=== PATIENT | female | born 1950 | race Caucasian/White ===

== ENCOUNTER 2016-11-07 13:59 | Emergency (ER) | payer OTHER, MEDICAID ==
--- NOTE | 2016-11-07 15:09 | DX ---
Right Ankle, Three Views History: Pain, post trauma x one week. Findings: No fracture, effusion, or dislocation is identified. Mineralization is normal. No arthritis is detected. Impression: No posttraumatic abnormality identified.
--- NOTE | 2016-11-07 15:49 | EDPHY ---
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 Approximately 1 week ago she misstepped twisting it. Since then she has had pain the as intermittent in nature. However, she can still ambulate. She denies other associated signs or symptoms: No open wounds, no paresthesias or abnormal coolness in the foot. No other pain or trauma reported. - Personal History Current Tetanus Diphtheria and Acellular Pertussis (TDAP): Yes - Medical/Surgical History Other PMH: hypothyroid, kiel,tonsilectomy, crum steroma - Social History Smoking Status: Never smoked - Physical Exam Exam: General appearance: Alert, nontoxic Musculoskeletal: There is tenderness about the lateral malleolus. The rest the ankle including over the Achilles is unremarkable. The knee, lower leg and foot are unremarkable. Vascular exam: Normal pulses and capillary refill in the foot Neurologic exam: The patient has normal sensation and motor function distal to the injury. Constitutional: Initial Vital Signs Temperature (C) 36.7 C 11/07/16 14:21 Heart Rate 80 11/07/16 14:21 Respiratory Rate 16 11/07/16 14:21 Blood Pressure 115/76 11/07/16 14:21 O2 Sat (%) 97 11/07/16 14:21 O2 Delivery Mode Room Air Allergies/Adverse Reactions: codeine [Codeine] Allergy (Unknown, Verified 11/07/16 14:20) gluten Allergy (Unknown, Verified 11/07/16 14:20) Sulfa (Sulfonamide Antibiotics) [Sulfa(Sulfonamide Antibiotics)] Allergy ( Unknown, Verified 11/07/16 14:20) venom-honey bee [bee venom (honey bee)] Allergy (Unknown, Verified 11/07/16 14: 20) Home Medications: Medication Instructions Recorded Thyroid [[place] Thyroid 60 MG (RX)] 60 mg PO DAILY10 08/04/12 Medical Decision Making - Diagnostics Imaging: X-ray series of the left ankle is negative for acute findings Procedures: Procedure: Splint placement. An Paulo wrap and Velcro stirrup splint was applied. After application of the splint I returned and re-examined the patient. The splint was adequately immobilizing the joint and distal to the splint the patient's circulation and sensation was intact. ED Course/Re-evaluation: Patient seen under the supervision of my secondary supervising physician Dr. Kulwant Law. Patient presents to the emergency department for right ankle injury. The foot is neurovascularly intact. X-ray negative. Likely a sprain. By history and physical exam no evidence of trauma to other parts of the body. Patient will be discharged home. Home care is discussed. She is referred to Orthopedics for recheck. Return precautions are given. Patient voiced understanding and agreement plan. Differential Diagnosis: Included but not limited to contusion, sprain or strain, fracture Departure - Departure Disposition: Home, Routine, Self-Care Clinical Impression: Ankle sprain Qualifiers: Encounter type: initial encounter Involved ligament of ankle: unspecified ligament Laterality: right Qualifier Code: (S93.401A) Sprain of unspecified ligament of right ankle, initial encounter Condition: Good Instructions: Ankle Sprain (ED) Additional Instructions: Follow-up with orthopedics for recheck next week If symptoms worsen or new symptoms develop return to the emergency department for recheck Referrals: Isrrael Mazariegos MD [Primary Care Provider] - As per Instructions Usman Hernandes MD [Medical Doctor] - As per Instructions
[2016-11-07 16:06] VITALS: BP 116/78; PULSE 85; RESP 15; TEMP 98.8; O2SAT 98
== END 2016-11-07 16:05 | disposition home or self-care (01) ==
DX: S93.401A Sprain of unspecified ligament of right ankle, initial encounter (principal); X58.XXXA Exposure to other specified factors, initial encounter
CPT/HCPCS: 73610; 99283; L4350

== ENCOUNTER → 2016-11-13 | Outpatient (CLI) | payer OTHER, MEDICAID | LOC: FIMAGING 13:06 | PROVIDERS: ATTEND Family Medicine | DX: R50.9 Fever, unspecified (principal); R05 Cough; R61 Generalized hyperhidrosis; R17 Unspecified jaundice; R79.82 Elevated C-reactive protein (CRP) ==

== ENCOUNTER → 2017-04-20 | Outpatient (CLI) | payer OTHER, MEDICAID | LOC: FIMAGING 07:15 | PROVIDERS: ATTEND Family Medicine | DX: K29.50 Unspecified chronic gastritis without bleeding (principal) ==